=== PATIENT | male | born 1995 | race Caucasian/White ===

== ENCOUNTER 2021-05-13 20:57 | Emergency (ER) | payer MEDICAID ==
[~2021-05-13] VITALS: Ht 172.7 cm; Wt 63.6 kg
[2021-05-13 21:31] VITALS: BP 127/108
[2021-05-13] MEDS ORDERED: TETanus/Pertussis (Acell)/Diphther VAC/PF (Tdap-Adult) 0.5ml syringe IMVAC ONE ×2 (21:40→23:15)
[2021-05-13] MEDS ORDERED: LIDOcaine 1% W/epiNEPHrine 1:200,000 10ml vial IJ ONE (21:40)
[2021-05-13] MEDS ORDERED: LIDOcaine/epinephrine/tetracaine TOPICAL sol 3 ML syringe TOP ONE (21:55)
[2021-05-13] MEDS ORDERED: CEPH250T PO (22:56)
== END 2021-05-13 23:27 | disposition home or self-care (01) ==
LOC: ER 20:58
DX: S91.311A Laceration without foreign body, right foot, initial encounter (principal); Z79.2 Long term (current) use of antibiotics; V00.131A Fall from skateboard, initial encounter; Y93.51 Activity, roller skating (inline) and skateboarding; Y92.89 Other specified places as the place of occurrence of the external cause; Y99.8 Other external cause status
CPT/HCPCS: 12002; 73630; 90471; 90715; 99283

== ENCOUNTER 2022-05-31 14:51 | Emergency (ER) | payer OTHER, MEDICAID ==
[~2022-05-31] VITALS: Ht 172.7 cm; Wt 65.9 kg
[2022-05-31 15:12] VITALS: BP 125/56
[2022-05-31] MEDS ORDERED: diazepam 5mg tablet PO ONE (17:05)
== END 2022-05-31 17:53 | disposition home or self-care (01) ==
LOC: ER 14:51
DX: M54.59 Other low back pain (principal); V89.2XXA Person injured in unspecified motor-vehicle accident, traffic, initial encounter; Y93.89 Activity, other specified; Y92.89 Other specified places as the place of occurrence of the external cause; Y99.8 Other external cause status
CPT/HCPCS: 99283

== ENCOUNTER 2023-10-18 18:28 | Emergency (ER) | payer MEDICAID ==
[~2023-10-18] VITALS: Ht 170.2 cm; Wt 72.0 kg
[2023-10-18] MEDS: proparacaine 0.5% ophthalmic drops 15ml RIGHTEYE ONE (19:52)
[2023-10-18] MEDS: fluorescein sod 1mg ophthalmic strip RIGHTEYE ONE (19:52)
[2023-10-18] MEDS ORDERED: ERYT1OIN6 RIGHTEYE (21:58)
[2023-10-18 22:11] VITALS: BP 122/76; PULSE 74; RESP 16; TEMP 98.5; O2SAT 99
[2023-10-19] MEDS ORDERED: HYDR-3965 PO (18:19)
[2023-10-19] MEDS ORDERED: LIDO15SO3 PO (18:19)
== END 2023-10-18 22:12 | disposition home or self-care (01) ==
LOC: ER 18:29
DX: S05.01XA Injury of conjunctiva and corneal abrasion without foreign body, right eye, initial encounter (principal); M79.651 Pain in right thigh; Z79.899 Other long term (current) drug therapy; X58.XXXA Exposure to other specified factors, initial encounter; Y93.89 Activity, other specified; Y92.89 Other specified places as the place of occurrence of the external cause; Y99.8 Other external cause status
CPT/HCPCS: 70480; 99284; J3490

== ENCOUNTER 2023-10-19 16:24 | Emergency (ER) | payer MEDICAID ==
[~2023-10-19] VITALS: Ht 172.7 cm; Wt 70.0 kg
[~2023-10-19 16:24] MED LIST: ERYT1OIN6 RIGHTEYE
[2023-10-19] MEDS: proparacaine 0.5% ophthalmic drops 15ml EACHEYE ONE (17:53)
[2023-10-19] MEDS ORDERED: HYDR-3965 PO (18:19)
[2023-10-19] MEDS ORDERED: LIDO15SO3 PO (18:19)
[2023-10-19 18:27] VITALS: BP 136/68; PULSE 66; RESP 18; TEMP 99.1; O2SAT 98
== END 2023-10-19 18:30 | disposition home or self-care (01) ==
LOC: ER 16:25
DX: S03.2XXA Dislocation of tooth, initial encounter (principal); T15.01XA Foreign body in cornea, right eye, initial encounter; X58.XXXA Exposure to other specified factors, initial encounter; Y93.89 Activity, other specified; Y92.89 Other specified places as the place of occurrence of the external cause; Y99.8 Other external cause status
CPT/HCPCS: 65220; 70100; 99283; 99284

== ENCOUNTER 2024-02-27 11:45 | Emergency (ER) | payer MEDICAID ==
[~2024-02-27] VITALS: Ht 172.7 cm; Wt 72.0 kg
[~2024-02-27 11:45] MED LIST changes: -ERYT1OIN6 RIGHTEYE; +LIDO15SO9 PO
[2024-02-27 11:50] VITALS: BP 111/49; PULSE 116; RESP 14; TEMP 99.5; O2SAT 96
== END 2024-02-27 13:02 | disposition home or self-care (01) ==
LOC: ER 11:45
DX: S93.491A Sprain of other ligament of right ankle, initial encounter (principal); Z79.899 Other long term (current) drug therapy; X50.1XXA Overexertion from prolonged static or awkward postures, initial encounter; Y93.89 Activity, other specified; Y92.89 Other specified places as the place of occurrence of the external cause; Y99.8 Other external cause status
CPT/HCPCS: 73590; 73610; 99284; A6449

== ENCOUNTER 2024-09-19 14:33 | Emergency (ER) | payer MEDICAID ==
[~2024-09-19] VITALS: Ht 172.7 cm; Wt 70.3 kg
[2024-09-19 14:35] VITALS: BP 150/61; PULSE 108; RESP 16; TEMP 98.5; O2SAT 98
[2024-09-19] MEDS: HYDROcodone/acetaminophen 5mg/325mg tablet PO ONE (14:42)
[2024-09-19] MEDS ORDERED: HYDR-3965 PO (15:02)
== END 2024-09-19 16:13 | disposition home or self-care (01) ==
LOC: ER 14:34
DX: S52.512A Displaced fracture of left radial styloid process, initial encounter for closed fracture (principal); S62.012A Displaced fracture of distal pole of navicular [scaphoid] bone of left wrist, initial encounter for closed fracture; Z79.899 Other long term (current) drug therapy; V00.131A Fall from skateboard, initial encounter; Y93.51 Activity, roller skating (inline) and skateboarding; Y92.89 Other specified places as the place of occurrence of the external cause; Y99.8 Other external cause status
CPT/HCPCS: 29125; 73110; 99284; A4565; A6446

== ENCOUNTER 2024-10-19 06:53 | Day surgery (SDC) | payer MEDICAID ==
[2024-10-15 13:55] LABS: BASOPHILS # (AUTO) 0.1 X10'3 (0-0.2); BASOPHILS % (AUTO) 0.9 % (0-1); EOSINOPHILS # (AUTO) 0.3 X10'3 (0-0.9); EOSINOPHILS % (AUTO) 3.8 % (0-6); LYMPHOCYTES # (AUTO) 3.4 X10'3 (1.1-4.8); LYMPHOCYTES % (AUTO) 42.6 % (21-51); MEAN CORPUSCULAR VOLUME 91.1 FL (78-98); MEAN PLATELET VOLUME 7.4 FL (7.4-10.4); MONOCYTES # (AUTO) 0.6 X10'3 (0-0.9); MONOCYTES % (AUTO) 7.4 % (2-12); NEUTROPHILS # (AUTO) 3.6 X10'3 (1.8-7.7); NEUTROPHILS % (AUTO) 45.3 % (42-75); PRE OP HEMATOCRIT 44.3 % (42.0-52.0); PRE OP HEMOGLOBIN 15.1 g/dL (14.0-17.9); PRE OP PLATELET COUNT 247 X10'3 (140-440); PRE OP WHITE BLOOD COUNT 7.9 10'3 (4.8-10.8); RED BLOOD COUNT 4.86 X10'6 (4.70-6.10)
[2024-10-15 14:07] LABS: ALBUMIN 4.4 G/DL (3.4-5.0); ALBUMIN/GLOBULIN RATIO 1.4 (1.1-1.5); ALKALINE PHOSPHATASE 83 IU/L (46-116); BLOOD UREA NITROGEN 9 MG/DL (7-18); BUN/CREATININE RATIO 11.3 (10.0-20.0); CALCIUM 9.2 MG/DL (8.5-10.1); CHLORIDE 104 MMOL/L (99-107); PRE OP ALT 30 U/L (30-65); PRE OP ANION GAP 7 (8-16); PRE OP AST 10 U/L (10-37); PRE OP BILIRUB, TOTAL 0.5 MG/DL (0.0-1.0); PRE OP GLUCOSE 97 MG/DL (70-104); PRE OP POTASSIUM 3.9 MMOL/L (3.4-5.1); PRE OP SODIUM 142 MMOL/L (135-145); TOTAL CARBON DIOXIDE 30.6 MMOL/L (24-32); TOTAL PROTEIN 7.5 G/DL (6.4-8.2); eGFR > 90 ML/MIN
[~2024-10-19] VITALS: Ht 170.2 cm; Wt 69.9 kg
[2024-10-19] VITALS (9 sets, daily range): BP systolic 96–129; BP diastolic 44–76; PULSE 65–91; RESP 12–18; TEMP 99.4; O2SAT 95–99
[2024-10-19] MEDS: ceFAZolin 2gm in dextrose, iso 50 ML IV ONE (05:30)
[~2024-10-19 06:53] MED LIST changes: +HYDR-3965 PO; -LIDO15SO9 PO
[2024-10-19] MEDS: ringers solution, lacted 1,000 ML IV SCH (07:18)
[2024-10-19] MEDS: famotidine 20mg tablet PO ONE (07:18)
[2024-10-19] MEDS ORDERED: morphine 2 MG/ML inj. syringe IV PRN (07:35)
[2024-10-19] MEDS ORDERED: ringers solution, lacted 1,000 ML IV SCH (07:35)
[2024-10-19] MEDS ORDERED: proCHLORperazine 10 MG/2 ml inj IV PRN (07:35)
[2024-10-19] MEDS ORDERED: morphine 4 MG/ML inj SYRINge IV PRN (07:35)
[2024-10-19] MEDS ORDERED: meperidine/PF 25mg/ml syringe IV PRN ×3 (07:35)
[2024-10-19] MEDS ORDERED: cloNIDine hcl/PF 100mcg/ml inj ONE (07:42)
[2024-10-19] MEDS ORDERED: BUPIVAcaine/PF 2.5mg/ml (0.25%) 10ml vial ONE (08:26)
[2024-10-19] MEDS ORDERED: sevoflurane 250ml liquid IH ONE (09:00)
[2024-10-19] MEDS ORDERED: midazolam 1 mg/ML 2ml injection ONE (09:04)
[2024-10-19] MEDS ORDERED: fentaNYL /PF 50mcg/ml 5ml ampule ONE (09:19)
[2024-10-19] MEDS ORDERED: ROPIVAcaine 0.5% (5mg/ml) 30ml vial ONE (09:58)
[2024-10-19] MEDS ORDERED: dexamethasone sod phosphate 4mg/ml inj. ONE (09:58)
[2024-10-19] MEDS ORDERED: propofol inj 20 ML IV ONE (09:58)
[2024-10-19] MEDS ORDERED: sugammadex 200mg/2ml injection IV ONE (09:59)
[2024-10-19] MEDS: ondansetron/PF 4mg/2ml inj IV PRN (10:29)
== END 2024-10-19 11:16 | disposition home or self-care (01) ==
LOC: PAS 06:53
PROVIDERS: ATTEND Orthopaedic Surgery Hand Surgery
DX: S52.572A Other intraarticular fracture of lower end of left radius, initial encounter for closed fracture (principal); F17.200 Nicotine dependence, unspecified, uncomplicated; Z98.890 Other specified postprocedural states; Z79.899 Other long term (current) drug therapy; X58.XXXA Exposure to other specified factors, initial encounter; Y93.51 Activity, roller skating (inline) and skateboarding; Y92.89 Other specified places as the place of occurrence of the external cause; Y99.8 Other external cause status
CPT/HCPCS: 25609; 36415; 64417; 80053; 82948; 85025; A6222; C1713; J0690; J0735; J1100; J2250; J2405; J2704; J2795; J3010; J3490; J7030; J7120; Z7506; Z7508; Z7512; A4215; A4565; A4618; A6449; A7000

== ENCOUNTER 2025-06-27 07:47 | Emergency (ER) | payer MEDICAID, OTHER ==
[~2025-06-27] VITALS: Ht 172.7 cm; Wt 72.4 kg
[2025-06-27] MEDS: LIDOcaine 1% W/epiNEPHrine 1:100,000 20ml vial IJ ONE (09:41)
[2025-06-27] MEDS: benzocaine (Anbesol) 12ml bottle MM STA (09:41)
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
[2025-06-27] MEDS ORDERED: HYDR-3972 PO (10:38)
[2025-06-27] MEDS ORDERED: AMOX500C2 PO (10:38)
[2025-06-27 11:20] VITALS: BP 121/68; PULSE 79; RESP 16; TEMP 97.5; O2SAT 99
== END 2025-06-27 11:29 | disposition home or self-care (01) ==
LOC: ER 07:47
DX: S01.81XA Laceration without foreign body of other part of head, initial encounter (principal); S01.512A Laceration without foreign body of oral cavity, initial encounter; Y04.0XXA Assault by unarmed brawl or fight, initial encounter; Y93.89 Activity, other specified; Y92.89 Other specified places as the place of occurrence of the external cause; Y99.8 Other external cause status
CPT/HCPCS: 12011; 99283; J3490; J7030; A6449